=== PATIENT | male | born 1950 | race Caucasian/White ===

== ENCOUNTER 2024-04-06 11:54 | Emergency (ER) | payer MEDICARE, SELFPAY ==
--- NOTE | ~2024-04-06 | CT_ITS ---
CT chest abdomen pelvis wo con Ordering provider: Mita Rogers History: . fall 1 week ago, L abd/rib pain . Comparison: None. Technique: CT chest without IV contrast. CT abdomen and pelvis without oral and IV contrast. Radiation reduction technique utilized.The dose-length product was 762.01 mGy-cm. FINDINGS: The study is limited due to lack of IV contrast. CHEST: --VISUALIZED THORACIC INLET: Normal as visualized. --MEDIASTINUM: Aorta/coronary arteries: Mild atheromatous disease. Ascending aorta measures 3.8 cm. Heart/other: The heart is not enlarged. Lymph nodes: No mediastinal or hilar adenopathy. Right hilar calcified lymph nodes. --LUNGS: Tiny nodule is seen in the right upper lobe laterally measuring 3 mm. No pleural base nodule is seen in the right posterior lower lobe measuring 4 mm. No infiltrates or effusions. No pneumothor ax. --MUSCULOSKELETAL: Soft tissues: The superficial soft tissues are normal. Bones: Age appropriate degenerative changes of the spine. Fracture of the left eighth, ninth, 10th an d 11th ribs posteriorly. ABDOMEN/PELVIS: --MUSCULOSKELETAL: Bones: Age appropriate degenerative changes of the spine. Bilateral sacroiliacs. Superficial soft tissues: Bilateral inguinal hernia with fat content larger on the left side. Otherwi se, The superficial soft tissues are normal. --UPPER ABDOMINAL ORGANS: Liver: Normal. Gallbladder: Normal. Spleen: Normal. Benign calcifications. Stomach/duodenum: Thickened wall of the stomach. Further evaluation advised. Pancreas: Normal. Adrenals: 8 mm nodule in the left adrenal. No follow-up advised.. Kidneys: Tiny stone in the right kidney upper pole. Tiny stone in the left kidney mid and lower pole. --PELVIC ORGANS: The bladder is under filled with thickened wall. Evaluation for cystitis advised. No bladder stones. The prostate is slightly enlarged. --BOWEL AND MESENTERY: Colon: No evidence of diverticulitis.. Appendix is not demonstrated. Small Bowel: Normal. No obstruction. Peritoneum/mesentery: No free air or free fluid. No mesenteric lymphadenopathy. --RETROPERITONEUM: Mild atheromatous disease of the abdominal aorta. No retroperitoneal lymphadenop athy. IMPRESSION: CHEST: 1. No acute cardiopulmonary pathology. 2. Tiny nodules in the right upper lobe the largest measures 4 mm. Follow-up to 12 months is advised . 3. Multiple rib fractures in the left lower thorax posteriorly. ABDOMEN/PELVIS: 1. Tiny bilateral kidney stones. 2. Small left adrenal gland nodule.Follow-up advised. 3. Thickened wall of the stomach. Further evaluation advised. Reviewed, dictated and finalized at location A. IMPRESSION: CHEST: 1. No acute cardiopulmonary pathology. 2. Tiny nodules in the right upper lobe the largest measures 4 mm. Follow-up t o 12 months is advised. 3. Multiple rib fractures in the left lower thorax posteriorly. ABDOMEN/PELVIS: 1. Tiny bilateral kidney stones. 2. Small left adrenal gland nodule.Follow-up advised. 3. Thickened wall of the stomach. Further evaluation advised.
[2024-04-06 11:59] VITALS: BP 139/79; PULSE 82; RESP 18; TEMP 36.2; O2SAT 98
--- NOTE | 2024-04-06 13:22 | ED.FALL ---
HPI - Fall General Chief Complaint: Fall <EM Taylor Last Filed: 04/06/24 13:25> Stated Complaint: fall, pain to L ribs <EM Taylor Last Filed: 04/06/24 13:25> Time Seen by Provider: 04/06/24 13:18 <EM Taylor Last Filed: 04/06/24 13:25> Focused HPI: patient is a 74-year-old male, with past medical history of hypertension, presents the ED with report of left rib pain. Patient reports he slipped and fell in his bathroom 1 week ago and hit his chest against his bathroom sink. He complains of pain to his left upper abdomen /left anterior ribs, left mid back since then. Has been taking ibuprofen for the pain without improvement. Pain is worse with movement, coughing, deep breathing. Reports having mild shortness of breath. Denies any other injuries from the fall. Denies head injury or LOC. He is not on any anticoagulation. GENERAL: Elderly, well-nourished, and in no acute distress. HEAD: Normocephalic, atraumatic. CHEST: Clear to auscultation. ?No respiratory distress. HEART: Regular rate and rhythm.? ABD: Mild tenderness in LUQ. No rebound. MSK: TTP throughout anterior inferior rib cage. No palpable deformities. No bruising noted. TTP along posterior rib cage/thoracic paraspinal musculature. Small area of bruising. No palpable bony deformities or midline spinal tenderness. NEURO: ?Alert and oriented x3. Patient screened in triage and initial orders placed.? ?Additional care and disposition to be based upon?diagnostic testing and treatment. <EM Taylor Last Filed: 04/06/24 13:25> Source: patient <EM Taylor Last Filed: 04/06/24 13:25> Mode of arrival: ambulatory <EM Taylor Last Filed: 04/06/24 13:25> Limitations: no limitations <EM Taylor Last Filed: 04/06/24 13:25> History of Present Illness HPI Narrative: Agree with above HPI <Jorgito Finley MD - Last Filed: 04/06/24 19:18> Related Data Home Medications: Home Medications Medication Instructions Recorded Confirmed hydrochlorothiazide 12.5 mg capsule 12.5 mg PO DAILY 05/22/19 04/14/22 aspirin 325 mg tablet 650 mg PO DAILY 07/19/20 04/14/22 <Mita Rogers PA-C - Last Filed: 04/06/24 13:25> Allergies/Adverse Reactions: Allergies Allergy/AdvReac Type Severity Reaction Status Date / Time No Known Allergies Allergy Verified 04/06/24 11:55 <Mita Rogers PA-C - Last Filed: 04/06/24 13:25> Review of Systems Review of Systems: All systems reviewed & are unremarkable except as noted in HPI and below <Jorgito Finley MD - Last Filed: 04/06/24 19:18> PMFSH Past Medical History Medical History: Medical History Alcohol abuse Anemia Depression GERD (gastroesophageal reflux disease) HLD (hyperlipidemia) Hyperplasia, prostate Hypertension Hypothyroidism Insomnia Tobacco abuse <Mita Rogers PA-C - Last Filed: 04/06/24 13:25> Surgical History Surgical History: Surgical History H/O eye surgery H/O hernia repair History of prostate surgery <Mita Rogers PA-C - Last Filed: 04/06/24 13:25> Family History Family History: Family History Father Hypertension Acute myocardial infarction Mother Hypertension Family history of primary malignant neoplasm of liver Acute myocardial infarction Family history of heart disease in male family member before age 55 Sibling Patient's brother is Acute myocardial infarction Son , cause of -suicide September 2017 Depression <Mita Rogers PA-C - Last Filed: 04/06/24 13:25> Social History Social History: Social History (Reviewed 06/25/22 @ 09:04 by Wendy Allen,
[2024-04-06 13:50] VITALS: O2SAT 95
[2024-04-06] MEDS: HYDROcodone/acetaminophen (*CRX) 5-325 MG TABLET 1 TAB PO (13:56)
[2024-04-06] MEDS: LIDOCAINE 5% PATCH 1 PATCH TRANSDERM (13:56)
== END 2024-04-06 15:35 | disposition home or self-care (01) ==
PROVIDERS: Emergency Provider Emergency Medicine; PCP Family Medicine
DX: S22.42XA Multiple fractures of ribs, left side, initial encounter for closed fracture (principal); W01.190A Fall on same level from slipping, tripping and stumbling with subsequent striking against furniture, initial encounter; I10 Essential (primary) hypertension; E78.5 Hyperlipidemia, unspecified; K21.9 Gastro-esophageal reflux disease without esophagitis; E03.9 Hypothyroidism, unspecified; F17.210 Nicotine dependence, cigarettes, uncomplicated
CPT/HCPCS: 71250; 74176; 99284; A9270

== ENCOUNTER 2025-05-09 15:41 | Emergency (ER) | payer MEDICARE, SELFPAY ==
[2025-05-09 15:44] VITALS: BP 104/78; PULSE 62; RESP 20; TEMP 36.4
--- OUTSIDE RECORDS SUMMARY | 2025-05-09 17:40 | XMS_ITS | Clinical Summary ---
Author Organization [facility] Address [address] [place] [id number] Care Team Providers Care Heavy Forger Name Role Phone Brandy Mccoy MD Primary Care Provider [phone] Albin Hong MD Unavailable [phone] Allergies No known active allergies Medications aspirin-acetami nophen-caffeine (EXCEDRIN EXTRA STRENGTH) 250-250-65 mg per tablet Take one by mouth four times per day 0 0 7 Active Additional Information Patient taking differently: 1 tablet oral Daily, Indications: Pain, Informant: Self, Reported on 01/20/[address] (NexIUM) 40 mg capsule take 1 capsule by oral route every day 30 5 3 Active Additional Information Patient taking differently:40 mgoral Daily before breakfast, Indications: Treatment of Non-Bleeding Gastric Disorder, acid reflux, Informant: Self, Reported on 01/20/2023 sildenafil (VIAGRA) 100 mg tablet take 1 by Oral route one hour before sex. 0 0 4 Active Additional Information Patient taking differently:100 mg,Indications: Erectile Dysfunction, Informant: Self, Reported on 10/27/2022 amLODIPine (NORVASC) 10 mg tablet TAKE 1 TABLET BY ORAL ROUTE EVERY DAY 90 2 4 Active Additional Information Patient taking differently:10 mgoral Every morning, Indications: hypertension, Informant: Self, Reported on 10/27/2022 hydroCHLOROthia zide (HYDRODIURIL) 12.5 mg tablet Take 1 tablet (12.5 mg total) by mouth daily as needed Active levothyroxine (SYNTHROID, LEVOTHROID) 150 mcg tabletIndicatio ns:hypothyroidi sm Take 1 tablet (150 mcg total) by mouth special education resource room teacher before breakfast Active lisinopril (PRINIVIL,ZESTR IL) 10 mg tabletIndicatio ns:hypertension Take 1 tablet (10 mg total) by mouth every morning Active metoprolol XL (TOPROL-XL) 100 mg 24 hr tabletIndicatio ns:hypertension Take 1.5 tablets (150 mg total) by mouth every morning Active gabapentin (NEURONTIN) 300 mg capsuleIndicati ons:Neuropathic Pain Take 1 capsule (300 mg total) by mouth nightly 1 Active zolpidem (AMBIEN) 10 mg tablet Take 1 tablet (10 mg total) by mouth nightly as needed for sleep 1 Active glycopyrrolate (ROBINUL) 1 mg tablet Take 1 tablet (1 mg total) by mouth 3 (three) times a day with Mestinon 90 tablet 11 1 Active Additional Information Patient taking differently:1 mg oral 3 times daily,with Mestinon. NOT TAKING, Informant: Self, Reported on 01/20/2023 pyridostigmine (MESTINON) 60 mg tablet TAKE 1 TABLET BY MOUTH THREE TIMES DAILY 270 tablet 2 Active Additional Information Patient taking differently: Not taking, Reported on 01/20/2023 neomycin-polymy elina B-dexAMETHasone (MAXITROL) 3.5 mg/g-10,000 unit/g-0.1 % ointment Apply 1/2 inch to each eye nightly 3.5 g 1 3 Active Additional Information Patient not taking.Reported on 09/10/2022 dorzolamide-phillip oloL (COSOPT) 22.3-6.8 mg/mL ophthalmic solution Administer 1 drop into both eyes 2 (two) times a day 10 mL 3 Active Additional Information Patient taking differently:1 drop each eye 2 times daily,Indications: open angle glaucoma, Informant: Self, Reported on 01/20/2023 latanoprost (XALATAN) 0.005 % ophthalmic solution Administer 1 drop into both eyes nightly 7.5 mL 11 3 Active Additional Information Patient taking differently:1 drop each eye Nightly,Indications: open angle glaucoma, Informant: Self, Reported on 01/20/2023 Active Problems Problem Noted Date Diagnosed Date 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 Michel. Low risk for CNV M per his assessment. Monitor. Assessment & Plan (09/16/2022 2:21 PM PARKING GARAGE MANAGER): Dome shaped subfoveal lesions, h/o cystoid macular edema (CME) (OS) Recommend eval in retina clinic Blepharoconjunctivitis of both eyes 08/06/2022 Assessment & Plan (09/10/2022 5:08 PM PARKING GARAGE MANAGER): resolved, stop drops and ointment Assessment & Plan (08/06/2022 6:29 PM PARKING GARAGE MANAGER): Severe, ongoing x 1 mo Pt ed wash towels, sheets, pillow cases Culture if no improvement (NI) at fuv Peripheral visual field defect of both eyes 11/2018 Overview (10/14/2018): Added automatically from request for surgery [id number] Ptosis of both eyelids 10/07/2018 Assessment & Plan (10/27/2022 2:52 PM CDT): left eye (OS)>OD Assessment & Plan (11/13/2020 12:28 PM CDT): Patient with bilateral ptosis OS > OD dating back to early 2018, soon noted after CE/IOL/XEN OS in April 2018. Since then, he's undergone ptosis repair in November 2018 and October 2020. His original surgery worked for roughly two years until he started to again notice drooping of his eyelids. His most recent repair had no effect on his ptosis. Both surgeries were bilateral. Notably, he has not had any diplopia, trouble swallowing or speaking, no other systemic symptoms of weakness over this time. -- work-up to date has included anti-striated muscle, Ach-R binding and modulating antibodies, all of which were negative -- his exam today is notable for significant ptosis OS >OD and mild abduction deficits OU. 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 The DDx involves CPEO; he has no other cardiac issues or pigmentary retinopathy which would point to a syndrome including this. -- We will plan to send MuSK antibodies with a reflex to [facility]. In addition, we will order a single-fiber EMG. These tests will help complete a work-up for MG. -- In the meantime, we discussed the option of a Mestinon trial and the patient was interested in this option: -- Will plan to use 60mg once daily for 3 days, then 60mg BID for 3 days, and then 60mg TID for 3 days until his next follow-up -- if the above work-up is negative and the pt has no response to Mestinon, we could consider muscle biopsy to evaluate for mitochondrial disorders Assessment & Plan (08/06/2020 3:24 PM PARKING GARAGE MANAGER): left eye (OS)>>OD -again causing visual decrease left eye (OS); visual acuity (VA) improves significantly by lifting lid left eye (OS); right eye (OD) is doing well -sp bilateral ptosis repair 11/2018 -Refer to Dr. Hong for eval Cystoid macular edema following cataract surgery , left eye 05/17/2018 Postop check 04/20/2018 Assessment & Plan (06/16/2018 11:21 AM PARKING GARAGE MANAGER): Refraction only visit today following cataract extraction (CE)/IOL/XEN 04/13/18 left eye (OS) -vision improves significantly by lifting upper lid left eye (OS) -no view of red reflex for retinoscopy os without holding lid today -uncorrected visual acuity (VA) 20/40+ left eye (OS) with encouragement and lid lifted; 20/30 with refraction today and lid lifted -given copy of new mrx; pt ed to hold new rx if proceeding with sx right eye (OD) -RTC [address] Love Assessment & Plan (04/20/2018 4:24 PM CDT): POW#1 status post (s/p) CEIOL/XEN/MMC left eye (OS) --patient seen yesterday without any issues --here today for add-on urgent visit, c/o significant pain and decreased vision --on exam, after placing tetracaine drops, patient states pain resolved to a 2/10 and vision rechecked and is stable from yesterday; no outright epi defects but diffuse PEEs with large bleb that is tracking inferiorly --d/w Dr. Love, will start abx ointment and continue pred forte (PF) QID --patient to keep scheduled appt in May, call sooner if any issues Irregular astigmatism of both eyes 03/10/2018 Assessment & Plan (03/10/2018 9:22 AM CDT): Prior Rk, needs carlos OU Primary open angle glaucoma (POAG) of both eyes, severe stage 01/27/2018 Overview (10/27/2022): - status post (s/p) phaco/IOL + XEN/MMC left eye (OS) 04/13/18 Assessment & Plan (01/12/2023 8:09 PM CDT): Severe POAG OU - s/p CEIOL/XEN OS - remains phakic OD - at this time there is dense SAS/IAS - OCT with diffuse thinning - patient with severe glaucoma and IOP too high on several checks - IOP goal 10 OU - discussed Molteno OS, CEIOL/Molteno OD - patient does not want surgery given outcome of vision OS - patient aware he will go blind without an intervention, he just wants drops - recommend starting 3 classes and following in 2 months, patient notes he will come in 6 - follow 6 months for IOP check Assessment & Plan (10/27/2022 2:55 PM CDT): Patient not currently taking any drops He was prescribed Cosopt and latanoprost last visit but has difficulty remembering Recommend evaluation with Dr. Jimenez , ?Alyssa Assessment & Plan (09/16/2022 2:20 PM PARKING GARAGE MANAGER): visual field (VF) unreliable rec re-starting Glaucoma drops Moderate thinning on OCT right eye (OD)>OS, repeat next visit for comparison Cosopt BID both eyes (OU) Latanoprost at bedtime (qhs) both eyes (OU) RTC intraocular pressure (IOP) check in 6 wk Assessment & Plan (08/06/2022 3:27 PM PARKING GARAGE MANAGER): IOPs borderline, CPM, re-evaluate at f/u in 10 days Assessment & Plan (08/06/2020 3:22 PM PARKING GARAGE MANAGER): intraocular pressure (IOP) above goal both eyes (OU) without drops -sp ceiol/XEN left eye (OS) 04/2018 -thinning on OCT RNFL but stable to 01/2018 -start cosopt BID both eyes (OU) -RTC 6 weeks intraocular pressure (IOP) Assessment & Plan (07/19/2018 12:16 PM PARKING GARAGE MANAGER): --s/p CEIOL/XEN OS 04/13/18 --doing well regarding IOP - vision improves dramatically with eyelid elevation -- recommend ptosis eval OU - then if OD does not improve, can consider phaco/XEN OD - but pt defers cataract surgery at this time. OS cataract was much worse Discussed patient's depression - sees psych - no current suicidal ideations. Dr. Hong - ptosis eval OU next available Assessment & Plan (05/17/2018 3:51 PM PARKING GARAGE MANAGER): - POM1, looks good from an intraocular pressure (IOP) and cornea standpoint. - DC ointment - Taper pred forte (PF) 3-2-1 - mac OCT flat. ARx minimal, does have dry eye and whorls on cornea, will treat with PF AT's and when off steroids this may help. MRx left eye (OS) only in 4 weeks. If visual acuity (VA) worse than 20/60 (best testing preop) then please have him see me in 2 months with [place] visual field (HVF) left eye (OS). If visual acuity (VA) around 20/60 have him return to me for intraocular pressure (IOP) check without a visual field (VF) in 2 months. Assessment & Plan (04/19/2018 3:11 PM CDT): POW1 EXTRACTION CATARACT - PHACOEMULSIFICATION AND LENS IMPLANT - Left and PLACEMENT GLAUCOMA DRAINAGE IMPLANT WITH PHARMACY MED - XEN IMPLANT MITOMYCIN C - Left Postoperative instructions were given. The patient is to use: Durezol QID - will change to pred forte (PF) QID when out - stop ketorolac and ofloxacin in case this is contributing to corneal spee Signs, symptoms of retinal detachment, tear, hole, and endophthalmitis and hypotony were reviewed and the patient is to call immediately for concerns. We discussed that things should improve until they stabilize. Should there be any worsening of pain, vision, or redness the patient is to call. F/U 3 weeks Assessment & Plan (04/14/2018 10:31 AM CDT): POD1 EXTRACTION CATARACT - PHACOEMULSIFICATION AND LENS IMPLANT - Left and PLACEMENT GLAUCOMA DRAINAGE IMPLANT WITH PHARMACY MED - XEN IMPLANT MITOMYCIN C - Left doing well Postoperative instructions were given. The patient is to use: ofloxacin QID X 1 week Durezol 1% QID Ketorolac QID no glaucoma drops OS Patient is to wear the shield at bedtime X 1 week. Signs, symptoms of retinal detachment, tear, hole, and endophthalmitis were reviewed and the patient is to call immediately for concerns. We discussed that things should improve until they stabilize. Should there be any worsening of pain, vision, or redness the patient is to call. Followup 1 week or sooner prn issues. Assessment & Plan (03/10/2018 9:21 AM CDT): Refractory. Given Rk needs something with more refractive predictability but with level of disease needs subconj route. The patient understands the risks, benefits, alternatives and wishes to proceed with glaucoma surgery. We discussed all viable surgical options including MIGS, lasers, and more invasive incisional surgeries. When taking a stepwise approach to glaucoma, the patient understands that the surgery is not curative and we may need to perform additional glaucoma surgery in the future. The patient agrees to proceed with Phaco/IOL/XEN/MMC left eye. Followed by right eye (OD) given results. Assessment & Plan (01/27/2018 9:25 AM CDT): Intraocular pressure was 20 in the right eye and 21 in the left eye using Applanation.. intraocular pressure (IOP) above goal. Start cosopt BID both eyes (OU). If intraocular pressure (IOP) near low teens OK for angle surgery. If not at goal rec subconj like xen or trab or tube. Prefer xen/mmc. Nuclear sclerosis, right 01/27/2018 Assessment & Plan (08/06/2020 3:25 PM PARKING GARAGE MANAGER): Progressed from last visit but patient very hesitant for surgery -refraction today stable to hb spec rx; pt says glasses do not help with vision -okay to observe for now but pt ed he will likely require cataract extraction (CE) right eye (OD) in the future if he would like vision to improve Assessment & Plan (03/10/2018 9:21 AM CDT): The patient understands the risks, benefits, alternatives and wishes to proceed with cataract surgery. We discussed the target and the patient elects target plano. We discussed toric and multifocal lens options as well as laser assisted wounds however I prefer a manual technique here. The patient understands glasses are a possibility and is comfortable proceeding with a monofocal lens. IOLM/carlos Assessment & Plan (01/27/2018 9:26 AM CDT): Discussed limitations with radial keratotomy (RK). Will need carlos and IOLM. XEN over trab due to refractive uncertainty. Discuss targets if ready for surgery next visit. Sensorineural hearing loss (SNHL) of both ears 0 01/24/2015 Benign prostatic hyperplasia with urinary obstru ction 01/23/2014 Overview (10/16/2016): BPH W URINARY OBSTRUCTN Hypothyroidism 11/25/2013 Overview (10/15/2016): HYPOTHYROIDISM NOS Gastroesophageal reflux disease 11/25/2013 Overview (10/15/2016): ESOPHAGEAL REFLUX Glaucoma Resolved Problems Problem Noted Date Diagnosed Date Resolved Date Primary open angle glaucoma of both eyes, severe stage 03/16/2018 05/16/2018 Overview (03/16/2018): Added automatically from request for surgery [id number] Nuclear sclerotic cataract of both eyes 03/16/2018 08/06/2020 Overview (03/16/2018): Added automatically from request for surgery [id number] Immunizations Immunization Administration Dates Next Due Influenza, Trivalent, High D ose, Split, Preservative Free, Intramuscular 02/27/2014 Influenza, Trivalent, IM (MDV) 06/12/2013,2010 Surgical History Surgery Date Site/Laterality Comments DE APPENDECTOMY 07/12/2009 - 07/11/2010 Appendectomy - (Added by TW Conv) PROSTATE SURGERY 07/12/2009 - 07/11/2010 Prostate Surgery - (Added by TW Conv) HERNIA REPAIR COLECTOMY 07/12/2012 - 07/11/2013 Abnormal small intesting/ 12 inch colon and cecum removed and stitched part to abdominal wall to prevent movement CATARACT EXTRACTION W/ INTRAOCULAR LENS IMPLANT 04/13/2018 Left with Glaucoma draninge implant BLEPHAROPTOSIS REPAIR 11/23/2018 Bilateral Ptosis repair, external aponeurotic advancement, both eyes BLEPHAROPTOSIS REPAIR 10/16/2020 Bilateral Ptosis repair, external aponeurotic advancement, both eyes Medical History Medical History Date Comments Hypertension GERD (gastroesophageal reflux disease) Glaucoma Cataract Hypothyroidism Hyperlipidemia Family History Medical History Relation Name Comments Coronary artery disease Father Swapna nary artery disease; Cause of : Coronary artery disease Heart attack Maternal Grandmother Coronary artery disease Mother Swapna nary artery disease; Hyperlipidemia Mother Hyperlipidemi a; Hypertension Mother Hypertension; / Family history of hypertension - (Added by TW Conv) Diabetes Other Family history of diabetes mellitus - Relation: Aunt (Added by TW Conv) Anesthesia problems Neg Hx Relation Name Status Comments Father (Age 80) Maternal Grandmother Mother Other Social History Tobacco Use Types Packs/Day Years Used Date Smoking Tobacco: Former Cigarettes 0.5 55.8 S tarted: 07/12/1969 Smokeless Tobacco: Never Comments:1 cigarette a day Alcohol Use Standard Drinks/Week Comments Yes 0 (1 standard drink = 0.6 oz pur e alcohol) 3 glasses wine per day AUDIT-C Answer Date Recorded Q1: How often do you have a drink containing alcohol? 4 or more times a week 01/20/2023 Q2: How many drinks containi ng alcohol do you have on a typical day when you are drinking? 3 or 4 Q3: How often do you have si x or more drinks on one occasion? Never 01/20/2023 Sex and Gender Information Value Date Recorded Sex Assigned at Not on file Legal Sex Male 11:21 PM PARKING GARAGE MANAGER Gender Identity Male 01/14/2021 11:29 AM CDT Sexual Orientation Not on file Obstetrics History Last Filed Vital Signs Vital Sign Reading Time Taken Comments Blood Pressure 118/94 10/16/2020 12:00 PM CDT Pulse 57 10/16/2020 12:05 PM CDT Temperature 37 C (98.6 F) 10/16/2020 11:55 AM CDT Respiratory Rate 9 10/16/2020 12:05 PM CDT Oxygen Saturation 93% 10/16/2020 12:05 PM CDT Inhaled Oxygen Concentration - - Weight 72.6 kg (160 lb) 01/20/2023 9:05 AM CDT Height 172.7 cm (5' 8) 01/20/2023 9:05 AM CDT Body Mass Index 24.33 01/20/2023 9:05 AM CDT Plan of Treatment Health Maintenance Due Date Last Done Comments Depression Screening 1950 Hepatitis C Screening 1949 Hepatitis B Screening 1967 Zoster Vaccine (1 of 2) 1968 Abdominal Aortic Aneurysm (A AA) Screen 2014 Well Visit 65+ 2014 Fall Risk Assessment 10/16/2021 10/16/2020 Influenza Vaccine (#1) 2025 0, 04/05/2019, 04/07/2018, Additional history exists DTaP/Tdap/Td Vaccine (2 - Td or Tdap) 10/22/2025 10/23/2015 Pneumococcal vaccine 65+ Completed 05/14/2016, 03/12 Medical Devices Implanted Type Area Shoe Repair Supervisor Device Identifier Shelf Expiration Date Model / Serial / Lot [employer] 5513-001 Xen 150um 45um 6mm Treatment System Preload Injector Intraocular Latex Free - [id number] - [id number] Implanted:Qty: 1 on 04/13/2018 by Phani Love MD at [facility] Left: Eye [employer] [id number] 11/08/2020 5513-001 / [id number] / [id number] [employer] [id number].230 Acrysof Iq Natural Stableforce Acrysert 6mm 13mm 1 Piece Foldable - [id number] - [id number] Implanted:Qty: 1 on 04/13/2018 by Phani Love MD at [facility] Left: Eye [employer] [id number] 11/08/2022 SN60WF.23 0 / [id number] / Insurance MEDICARE [facility] MEDICARE [facility] Care Teams Heavy Forger Relationship Specialty Start Date End Date Brandy Mccoy MD PCP - General 11/11/17 Albin Hong MD Surgeon Ophthalmology 10/16/20
--- OUTSIDE RECORDS SUMMARY | 2025-05-09 18:14 | XMS_ITS | Clinical Summary ---
Author Organization [facility] Address [address] [place] [id number] Care Team Providers Care Digital Imaging Specialist Name Role Phone Brandy Mccoy MD Primary Care Provider [phone] Albin Hong MD Unavailable [phone] Allergies No known active allergies Medications aspirin-acetami [...] 1 tablet (150 mcg total) by mouth manager of internal audit before breakfast Active lisinopril (PRINIVIL,ZESTR IL) 10 [...] Monitor. Assessment & Plan (09/16/2022 2:21 PM SPORTING GOODS SALESPERSON): Dome shaped subfoveal lesions, h/o cystoid macular edema (CME) (OS) Recommend eval in retina clinic Blepharoconjunctivitis of both eyes 08/06/2022 Assessment & Plan (09/10/2022 5:08 PM SPORTING GOODS SALESPERSON): resolved, stop drops and ointment Assessment & Plan (08/06/2022 6:29 PM SPORTING GOODS SALESPERSON): Severe, ongoing x 1 mo Pt ed wash towels, sheets, pillow cases Culture if no improvement (NI) at fuv Peripheral visual field defect of both eyes 11/2018 Overview (10/14/2018): Added automatically from request for surgery [id number] Ptosis of both eyelids 10/07/2018 Assessment & [...] send MuSK antibodies with a reflex to [facility]. In addition, we will order a single-fiber [...] disorders Assessment & Plan (08/06/2020 3:24 PM SPORTING GOODS SALESPERSON): left eye (OS)>>OD -again causing visual decrease left eye (OS); visual acuity (VA) improves significantly by lifting lid left eye (OS); right eye (OD) is doing well -sp bilateral ptosis repair 11/2018 -Refer to Dr. Hong for eval Cystoid macular edema following cataract surgery , left eye 05/17/2018 Postop check 04/20/2018 Assessment & Plan (06/16/2018 11:21 AM SPORTING GOODS SALESPERSON): Refraction only visit today following cataract extraction [...] ?Alyssa Assessment & Plan (09/16/2022 2:20 PM SPORTING GOODS SALESPERSON): visual field (VF) unreliable rec re-starting Glaucoma drops Moderate thinning on OCT right eye (OD)>OS, repeat next visit for comparison Cosopt BID both eyes (OU) Latanoprost at bedtime (qhs) both eyes (OU) RTC intraocular pressure (IOP) check in 6 wk Assessment & Plan (08/06/2022 3:27 PM SPORTING GOODS SALESPERSON): IOPs borderline, CPM, re-evaluate at f/u in 10 days Assessment & Plan (08/06/2020 3:22 PM SPORTING GOODS SALESPERSON): intraocular pressure (IOP) above goal both eyes (OU) without drops -sp ceiol/XEN left eye (OS) 04/2018 -thinning on OCT RNFL but stable to 01/2018 -start cosopt BID both eyes (OU) -RTC 6 weeks intraocular pressure (IOP) Assessment & Plan (07/19/2018 12:16 PM SPORTING GOODS SALESPERSON): --s/p CEIOL/XEN OS 04/13/18 --doing well regarding [...] available Assessment & Plan (05/17/2018 3:51 PM SPORTING GOODS SALESPERSON): - POM1, looks good from an intraocular [...] 01/27/2018 Assessment & Plan (08/06/2020 3:25 PM SPORTING GOODS SALESPERSON): Progressed from last visit but patient very [...] (03/16/2018): Added automatically from request for surgery [id number] Nuclear sclerotic cataract of both eyes 03/16/2018 08/06/2020 Overview (03/16/2018): Added automatically from request for surgery [id number] Immunizations Immunization Administration Dates Next Due Influenza, Trivalent, High D ose, Split, Preservative Free, Intramuscular 02/27/2014 Influenza, Trivalent, IM (MDV) 06/12/2013,2010 Surgical History Surgery Date Site/Laterality Comments [place] APPENDECTOMY 07/12/2009 - 07/11/2010 Appendectomy - (Added [...] on file Legal Sex Male 11:21 PM SPORTING GOODS SALESPERSON Gender Identity Male 01/14/2021 11:29 AM CDT [...] 05/14/2016, 03/12 Medical Devices Implanted Type Area Professor Of Criminal Justice Device Identifier Shelf Expiration Date Model / Serial / Lot [employer] 5513-001 Xen 150um 45um 6mm Treatment System Preload Injector Intraocular Latex Free - [id number] - [id number] Implanted:Qty: 1 on 04/13/2018 by Phani Love MD at [facility] Left: Eye [employer] [id number] 11/08/2020 5513-001 / [id number] / [id number] [employer] Sn60wf.230 Acrysof Iq Natural Stableforce Acrysert 6mm 13mm 1 Piece Foldable - [id number] - [id number] Implanted:Qty: 1 on 04/13/2018 by Phani Love MD at [facility] Left: Eye [employer] [id number] 11/08/2022 SN60WF.23 0 / [id number] / Insurance MEDICARE [facility] MEDICARE [facility] Care Teams Digital Imaging Specialist Relationship Specialty Start Date End Date Brandy Mccoy MD PCP - General 11/11/17 Albin Hong MD Surgeon Ophthalmology 10/16/20
== END 2025-05-09 18:16 | disposition left against medical advice (07) ==
LOC: ANHED 17:52
PROVIDERS: PCP Family Medicine
DX: R53.1 Weakness (principal)
CPT/HCPCS: 99199

== ENCOUNTER 2025-06-22 15:24 | Outpatient (CLI) | payer MEDICARE, SELFPAY ==
--- NOTE | ~2025-06-22 | CT_ITS ---
EXAMINATION: CT brain wo con DATE: 06/22/2025 15:41 INDICATION: Cognitive change TECHNIQUE: Computed tomography (CT) of the head was performed without intravenous contrast. The dose-length product was 824.41 mGy-cm. COMPARISON: None FINDINGS: Mild to moderate diffuse chronic microvascular ischemic appearing white matter changes and volume loss. No large acute ischemic event. No intracranial mass effect or hemorrhage. Calvarial structures appear intact. IMPRESSION: 1. No large acute ischemic event, mass effect or hemorrhage. 2. Chronic microvascular ischemic appearing white matter changes. Reviewed, dictated and finalized at location A. [facility]
== END 2025-06-22 15:25 | disposition home or self-care (01) ==
LOC: MICIMG 15:25
DX: R41.89 Other symptoms and signs involving cognitive functions and awareness (principal); R46.89 Other symptoms and signs involving appearance and behavior
CPT/HCPCS: 70450